=== PATIENT | male | born 1960 | race Caucasian/White ===

== ENCOUNTER 2017-07-06 13:08 | Emergency (ER) | payer BC, MEDICAID ==
[~2017-07-06] VITALS: Ht 190.5 cm; Wt 108.9 kg
[2017-07-06 13:22] VITALS: BP_SYST 133
--- NOTE | 2017-07-06 13:26 | NUR ---
Patient to ER bed 02 to gown for evaluation. Side rails up.
--- NOTE | 2017-07-06 13:26 | NUR ---
Pt brought by self,ambulatory,A&Ox4, pt presents to ER with cough , sore throat and congestion, skin pink and warm, cap refill <3, VSS, afebrile.
--- NOTE | 2017-07-06 13:28 | NUR ---
Dr Patino at bedside examining patient
--- NOTE | 2017-07-06 13:43 | NUR ---
Patient given written and verbal discharge instructions and verbalizes understanding. ER MD discussed with patient the results and treatment provided. Patient in stable condition. ID arm band removed. Rx of Albuterol,Motrin,Augmentin,Atenolol, Paxil given. Patient educated on pain management and to follow up with PMD. Pain Scale 2/10 tolerable for pt . Opportunity for questions provided and answered.
[2017-07-06 13:47] VITALS: BP_SYST 133
== END 2017-07-06 13:43 | disposition home or self-care (01) ==
LOC: SED 13:08
DX: J02.9 Acute pharyngitis, unspecified (principal); J40 Bronchitis, not specified as acute or chronic; Z88.8 Allergy status to other drugs, medicaments and biological substances
CPT/HCPCS: 36415; 86710; 99284

== ENCOUNTER 2017-07-29 07:19 | Inpatient (IN) | payer BC, MEDICAID ==
[~2017-07-29] VITALS: Ht 188 cm; Wt 99.8 kg
[2017-07-29 07:25] VITALS: BP_SYST 139
[2017-07-29] MEDS ORDERED: NACL 0.9% 1,000 ML IV ONE (07:44)
[2017-07-29] MEDS ORDERED: MORPHINE 2 MG/ML INJ. SYRINGE IVP ONE ×2 (07:45→10:00)
[2017-07-29] MEDS ORDERED: ONDANSETRON HCL 4 MG/2 ML VIAL IVP ONE (07:45)
[2017-07-29 08:15] LABS: BILIRUBIN,URINE 1+ (NEGATIVE); BLOOD, URINE NEGATIVE (NEGATIVE); CLARITY/URINE CLEAR (CLEAR); COLOR,URINE YELLOW (YELLOW); GLUCOSE,URINE NEGATIVE (NEGATIVE); KETONES,URINE TRACE (NEGATIVE); LEUKOCYTE ESTERASE ,URINE 1+ (NEGATIVE); NITRITE, URINE NEGATIVE (NEGATIVE); PROTEIN URINE TRACE (NEGATIVE); UROBILINOGEN,URINE 0.2 (0.2-1.0)
[2017-07-29 08:17] LABS: CALCIUM 9.3 mg/dL (8.4-11.0); CREATININE 1.2 mg/dL (0.55-1.30); POTASSIUM 3.8 mmol/L (3.5-5.1)
[2017-07-29 08:21] LABS: ALBUMIN 4.4 g/dL (3.4-4.8); TOTAL BILIRUBIN 1.2 mg/dL (0.0-1.0)
[2017-07-29 08:22] LABS: PROTHROMBIN TIME 10.4 SECS (9.5-12.5)
[2017-07-29 08:33] LABS: BASOPHILS % (AUTO) 0.5 % (0.0-2.0); EOSINOPHILS # (AUTO) 0.3 K/uL (0.0-0.4); EOSINOPHILS % (AUTO) 3.8 % (0.0-4.0); HEMATOCRIT 55.9 % (36-54); LYMPHOCYTES # (AUTO) 1.5 K/uL (1.0-5.5); LYMPHOCYTES % (AUTO) 17.2 % (20.5-51.5); MEAN CORPUSCULAR HEMOGLOBIN 31 pg (27-31); MEAN CORPUSCULAR HGB CONC 34 % (32-36); MEAN CORPUSCULAR VOLUME 90 fL (79.0-98.0); MONOCYTES # (AUTO) 0.7 K/uL (0.0-1.0); MONOCYTES % (AUTO) 8.8 % (1.7-9.3); NEUTROPHILS # (AUTO) 5.9 K/uL (1.8-7.7); NEUTROPHILS % (AUTO) 69.7 % (40.0-70.0); PLATELET COUNT (AUTO) 288 K/uL (130-430); RED BLOOD CELL COUNT(AUTO) 6.19 MIL/uL (4.2-6.2); RED CELL DISTRIBUTION WIDTH 12.4 % (9.0-15.0); WHITE BLOOD COUNT (AUTO) 8.4 K/uL (4.8-10.8)
[2017-07-29 08:36] LABS: BACTERIA,URINE MODERATE /HPF (None Seen); RBC,URINE 0-3 /HPF (0-3)
[2017-07-29 08:51] LABS: HEMOGLOBIN 19.1 g/dL (14.0-18.0)
[2017-07-29 10:10] VITALS: BP_SYST 132
[2017-07-29] MEDS ORDERED: FLU VACC QS 2017-18(36MOS+)/PF 0.5 ML/SYR SYRINGE I.M. PRN (10:30)
[2017-07-29] MEDS ORDERED: ACETAMINOPHEN 325 MG TABLET PO PRN (11:30)
[2017-07-29] MEDS ORDERED: MORPHINE 2 MG/ML INJ. SYRINGE ONE (12:24)
[2017-07-29 12:55] VITALS: BP_SYST 124
[2017-07-29] MEDS ORDERED: PANTOPRAZOLE SODIUM 40 MG TAB PO ONE (14:00)
[2017-07-29 16:23] VITALS: BP_SYST 148
[2017-07-29] MEDS ORDERED: LORazepam 1 MG TABLET PO PRN (16:45)
[2017-07-29] MEDS ORDERED: LEVOFLOXACIN 500 MG/D5W 100 ML IV SCH (17:00)
[2017-07-29] MEDS ORDERED: BISACODYL 5 MG TABLET.DR (DULCOLAX) PO ONE (17:00)
[2017-07-29] MEDS: ONDANSETRON HCL 4 MG/2 ML VIAL IVP PRN (17:12)
[2017-07-29] MEDS: MORPHINE 2 MG/ML INJ. SYRINGE IVP PRN ×2 (17:13→22:02)
[2017-07-29] MEDS ORDERED: GOLYTELY / COLYTE SOLUTION 4 LITERS PO ONE (18:00)
[2017-07-29] MEDS: traZODone HCL 50 MG TABLET (DESYREL) PO SCH ×2 (21:00→21:09)
[2017-07-30 01:05] VITALS: BP_SYST 115
[2017-07-30] MEDS: ONDANSETRON HCL 4 MG/2 ML VIAL IVP PRN (05:38)
[2017-07-30] MEDS: MORPHINE 2 MG/ML INJ. SYRINGE IVP PRN ×2 (05:39→12:56)
[2017-07-30 06:30] LABS: BASOPHILS % (AUTO) 0.5 % (0.0-2.0); EOSINOPHILS # (AUTO) 0.4 K/uL (0.0-0.4); HEMATOCRIT 53.6 % (36-54); HEMOGLOBIN 18.1 g/dL (14.0-18.0); LYMPHOCYTES % (AUTO) 20.9 % (20.5-51.5); MEAN CORPUSCULAR HEMOGLOBIN 31 pg (27-31); MEAN CORPUSCULAR HGB CONC 34 % (32-36); MEAN CORPUSCULAR VOLUME 92 fL (79.0-98.0); MONOCYTES # (AUTO) 0.7 K/uL (0.0-1.0); MONOCYTES % (AUTO) 7.1 % (1.7-9.3); NEUTROPHILS # (AUTO) 6.3 K/uL (1.8-7.7); NEUTROPHILS % (AUTO) 67.5 % (40.0-70.0); PLATELET COUNT (AUTO) 280 K/uL (130-430); RED BLOOD CELL COUNT(AUTO) 5.86 MIL/uL (4.2-6.2); RED CELL DISTRIBUTION WIDTH 12.6 % (9.0-15.0); WHITE BLOOD COUNT (AUTO) 9.4 K/uL (4.8-10.8)
[2017-07-30] MEDS ORDERED: MEPERIDINE HCL/PF 100 MG/ML AMP ONE (07:16)
[2017-07-30] MEDS ORDERED: SIMETHICONE 40 MG/0.6 ML ML ONE (07:16)
[2017-07-30] MEDS ORDERED: MIDAZOLAM HCL 5 MG/5 ML VIAL ONE (07:17)
[2017-07-30 07:24] LABS: INR 1.1 (0.80-1.20)
[2017-07-30 07:25] LABS: CALCIUM 8.7 mg/dL (8.4-11.0); CREATININE 1.05 mg/dL (0.55-1.30); POTASSIUM 3.6 mmol/L (3.5-5.1); THYROID STIMULATING HORMONE 10.64 uIu/mL (0.34-4.82)
[2017-07-30] MEDS ORDERED: PARoxetine HCL 20 MG TABLET PO SCH (09:00)
[2017-07-30] MEDS ORDERED: PANTOPRAZOLE SODIUM 40 MG TAB PO SCH (09:00)
[2017-07-30] MEDS ORDERED: ATENOLOL 25 MG TABLET(TENORMIN) PO SCH (09:00)
[2017-07-30 09:10] VITALS: BP_SYST 120
[2017-07-30] MEDS ORDERED: LEVOTHYROXINE SODIUM 0.05 MG TABLET PO ONE (09:45)
[2017-07-30] MEDS ORDERED: CARISOPRODOL 350 MG TABLET PO ONE (11:15)
[2017-07-30 12:23] VITALS: BP_SYST 99
[2017-07-30 12:24] VITALS: BP_SYST 99
[2017-07-30] MEDS ORDERED: ATEN-41 PO (12:36)
[2017-07-30] MEDS ORDERED: LEVO25TA7 PO (12:43)
[2017-07-30] MEDS ORDERED: BISACODYL 5 MG TABLET.DR (DULCOLAX) PO ONE (17:00)
[2017-07-31] MEDS ORDERED: LEVOTHYROXINE SODIUM 0.05 MG TABLET PO SCH (07:00)
== END 2017-07-30 13:40 | disposition home or self-care (01) | DRG 690 ==
LOC: SED 07:19 → SMU 09:47
PROVIDERS: ADMIT Internal Medicine; ATTEND Internal Medicine
PROC: 0DJD8ZZ Inspection of Lower Intestinal Tract, Via Natural or Artificial Opening Endoscopic (ICD-10-PCS; principal; 2017-07-30 08:00)
DX: N39.0 Urinary tract infection, site not specified (principal); D75.1 Secondary polycythemia; I48.91 Unspecified atrial fibrillation; K64.8 Other hemorrhoids; F32.9 Major depressive disorder, single episode, unspecified; E78.5 Hyperlipidemia, unspecified; Z80.0 Family history of malignant neoplasm of digestive organs; Z88.8 Allergy status to other drugs, medicaments and biological substances
CPT/HCPCS: 36415; 45378; 80048; 80053; 81000-TC; 82150-TC; 83690-TC; 83735-TC; 84443-TC; 85025; 85610-TC; 85730-TC; 87086; 93005; 96361; 96374; 96375; 99285; J1956; J2175; J2250; J2270; J2405; J7030; Q2037

== ENCOUNTER 2020-10-19 17:19 | Emergency (ER) | payer BC, MEDICAID ==
[~2020-10-19] VITALS: Ht 188 cm; Wt 102.1 kg
[2020-10-19 17:19] VITALS: BP_SYST 104
[~2020-10-19 17:19] MED LIST: ATEN-41 PO; LEVO25TA7 PO
[2020-10-19 18:40] LABS: BASOPHILS # (AUTO) 0.1 K/uL (0.0-0.2); EOSINOPHILS # (AUTO) 0.3 K/uL (0.0-0.4); LYMPHOCYTES # (AUTO) 1.9 K/uL (1.0-5.5); RED BLOOD CELL COUNT(AUTO) 5.88 MIL/uL (4.2-6.2); WHITE BLOOD COUNT (AUTO) 10.2 K/uL (4.8-10.8)
[2020-10-19 18:42] LABS: BASOPHILS % (AUTO) 1.1 % (0.0-2.0); EOSINOPHILS % (AUTO) 3.1 % (0.0-4.0); HEMATOCRIT 57.4 % (36-54); LYMPHOCYTES % (AUTO) 18.4 % (20.5-51.5); MEAN CORPUSCULAR HEMOGLOBIN 34 pg (27-31); MEAN CORPUSCULAR HGB CONC 35 % (32-36); MEAN CORPUSCULAR VOLUME 98 fL (79.0-98.0); MONOCYTES # (AUTO) 1.1 K/uL (0.0-1.0); MONOCYTES % (AUTO) 10.4 % (1.7-9.3); NEUTROPHILS # (AUTO) 6.9 K/uL (1.8-7.7); PLATELET COUNT (AUTO) 217 K/uL (130-430); RED CELL DISTRIBUTION WIDTH 13.7 % (9.0-15.0)
[2020-10-19 18:55] LABS: PROTHROMBIN TIME 10.1 SECS (9.5-12.5)
[2020-10-19 18:59] LABS: SODIUM SERUM 141 mmol/L (136-145)
[2020-10-19 19:00] LABS: ANION GAP 6 (5-15); CALCIUM 8.8 mg/dL (8.4-11.0); CHLORIDE 104 mmol/L (98-107); CREATININE 1.31 mg/dL (0.55-1.30); GFR AFRICAN AMERICAN 72 mL/min (>90); GLUCOSE 89 mg/dL (70-99); POTASSIUM 4.4 mmol/L (3.5-5.1); UREA NITROGEN, BLOOD 8 mg/dL (8-21)
[2020-10-19 19:07] LABS: ALANINE AMINOTRANSFERASE 35 U/L (12-78); ALBUMIN 3.6 g/dL (3.4-4.8); ASPARTATE AMINOTRANSFERASE 20 U/L (10-37); LIPASE 80 U/L (73-393); TOTAL BILIRUBIN 1.4 mg/dL (0.0-1.0)
[2020-10-19 19:26] LABS: BILIRUBIN,URINE NEGATIVE (NEGATIVE); BLOOD, URINE NEGATIVE (NEGATIVE); CLARITY/URINE CLEAR (CLEAR); COLOR,URINE YELLOW (YELLOW); GLUCOSE,URINE NEGATIVE (NEGATIVE); KETONES,URINE NEGATIVE (NEGATIVE); LEUKOCYTE ESTERASE ,URINE NEGATIVE (NEGATIVE); NITRITE, URINE NEGATIVE (NEGATIVE); PROTEIN URINE NEGATIVE (NEGATIVE)
[2020-10-19] MEDS ORDERED: CIPR500T5 PO (19:40)
[2020-10-19] MEDS ORDERED: ACET325C6 PO (19:40)
[2020-10-19] MEDS ORDERED: METR500T PO (19:40)
[2020-10-19] MEDS ORDERED: KETOROLAC TROMETHAMINE 30 MG VIAL IM ONE (19:45)
[2020-10-19] MEDS ORDERED: ONDANSETRON 4 MG ODT TAB PO ONE (19:45)
[2020-10-19] MEDS ORDERED: MORPHINE 2 MG/ML INJ. SYRINGE IM ONE (19:45)
[2020-10-19 20:14] VITALS: BP_SYST 104
[2020-10-19] MEDS ORDERED: TRAM50TA PO (20:15)
== END 2020-10-19 20:16 | disposition home or self-care (01) ==
LOC: SED 17:19
DX: R10.32 Left lower quadrant pain (principal); R19.7 Diarrhea, unspecified; Z88.8 Allergy status to other drugs, medicaments and biological substances; Z79.899 Other long term (current) drug therapy
CPT/HCPCS: 36415; 74176; 76376; 80053; 81003; 83690; 84484; 85025; 85610; 85730; 93005; 96372; 99285; J1885; J2270; Q0162

== ENCOUNTER 2021-06-04 19:29 | Emergency (ER) | payer BC, SELFPAY ==
[~2021-06-04] VITALS: Ht 190.5 cm; Wt 99.8 kg
[~2021-06-04 19:29] MED LIST changes: +ACET325C6 PO; +CIPR500T5 PO; +METR500T PO
[2021-06-04 21:19] VITALS: BP_SYST 121
--- NOTE | 2021-06-04 22:15 | NUR ---
Patient came to ER. C/O right shoulder pain x 3 months. Patient reported, had right shoulder pain for 3 months and needs to check for COVID-19 ( Patient was vaccinated in January -Contacted with family/friend who had COVID-19 recently), Patient denies COVID-19 symptoms. )
--- NOTE | 2021-06-04 22:15 | NUR ---
ER Dr. Linares at Triage examining patient.
--- NOTE | 2021-06-04 23:33 | NUR ---
COVID-19 swabs collected and sent to lab.
--- NOTE | 2021-06-05 00:32 | NUR ---
Dr. Linares at Triage to explain results and treatment plans.
[2021-06-05 00:41] VITALS: BP_SYST 121
--- NOTE | 2021-06-05 00:41 | NUR ---
Patient given written and verbal discharge instructions and verbalizes understanding. ER MD discussed with patient the results and treatment provided. Patient in stable condition. ID arm band removed. No Rx given. Patient educated on pain management and to follow up with PMD. Pain Scale 1/10. Opportunity for questions provided and answered.
== END 2021-06-05 00:41 | disposition home or self-care (01) ==
LOC: SED 19:29
DX: M75.21 Bicipital tendinitis, right shoulder (principal); F32.9 Major depressive disorder, single episode, unspecified; F41.9 Anxiety disorder, unspecified; Z20.822 Contact with and (suspected) exposure to COVID-19; Z79.899 Other long term (current) drug therapy
CPT/HCPCS: 36415; 73030; 99284

== ENCOUNTER 2021-07-29 10:12 | Emergency (ER) | payer BC, OTHER, SELFPAY ==
[~2021-07-29] VITALS: Ht 188 cm; Wt 94.3 kg
[2021-07-29 10:12] VITALS: BP_SYST 104
[2021-07-29] MEDS ORDERED: HYDROcodone/ACETAMIN 5-325 MG TAB (NORCO/ VICODIN) PO ONE ×2 (10:45→12:00)
[2021-07-29] MEDS ORDERED: HYDR-3917 PO (11:39)
[2021-07-29] MEDS ORDERED: NAPR-1172 PO (11:39)
[2021-07-29 13:54] VITALS: BP_SYST 135
== END 2021-07-29 13:54 | disposition home or self-care, planned readmission (81) ==
LOC: SED 10:12
DX: S62.316A Displaced fracture of base of fifth metacarpal bone, right hand, initial encounter for closed fracture (principal); S60.221A Contusion of right hand, initial encounter; F32.9 Major depressive disorder, single episode, unspecified; F41.9 Anxiety disorder, unspecified; Z88.8 Allergy status to other drugs, medicaments and biological substances; Z79.899 Other long term (current) drug therapy; W22.8XXA Striking against or struck by other objects, initial encounter; Y93.89 Activity, other specified; Y92.89 Other specified places as the place of occurrence of the external cause; Y99.8 Other external cause status
CPT/HCPCS: 99284

== ENCOUNTER 2021-08-10 11:51 | Emergency (ER) | payer OTHER ==
[~2021-08-10] VITALS: Ht 190.5 cm; Wt 93.0 kg
[~2021-08-10 11:51] MED LIST changes: +HYDR-3917 PO; +NAPR-1172 PO
[2021-08-10 12:15] VITALS: BP_SYST 134
[2021-08-10 13:35] LABS: CALCIUM 7.8 mg/dL (8.4-11.0); CREATININE 0.94 mg/dL (0.55-1.30)
[2021-08-10 13:41] LABS: ALBUMIN 3.7 g/dL (3.4-4.8); TOTAL BILIRUBIN 0.7 mg/dL (0.0-1.0)
[2021-08-10 13:54] LABS: HEMOGLOBIN 15.6 g/dL (14.0-18.0); RED BLOOD CELL COUNT(AUTO) 4.89 MIL/uL (4.2-6.2); WHITE BLOOD COUNT (AUTO) 7.9 K/uL (4.8-10.8)
[2021-08-10 13:55] LABS: BASOPHILS # (AUTO) 0.1 K/uL (0.0-0.2); BASOPHILS % (AUTO) 1.3 % (0.0-2.0); EOSINOPHILS # (AUTO) 0.4 K/uL (0.0-0.4); EOSINOPHILS % (AUTO) 5.3 % (0.0-4.0); LYMPHOCYTES # (AUTO) 1.5 K/uL (1.0-5.5); LYMPHOCYTES % (AUTO) 18.7 % (20.5-51.5); MEAN CORPUSCULAR HEMOGLOBIN 32 pg (27-31); MEAN CORPUSCULAR HGB CONC 34 % (32-36); MEAN CORPUSCULAR VOLUME 94 fL (79.0-98.0); MONOCYTES # (AUTO) 0.5 K/uL (0.0-1.0); NEUTROPHILS # (AUTO) 5.3 K/uL (1.8-7.7); NEUTROPHILS % (AUTO) 67.7 % (40.0-70.0); PLATELET COUNT (AUTO) 276 K/uL (130-430); RED CELL DISTRIBUTION WIDTH 12.9 % (9.0-15.0)
[2021-08-10] MEDS ORDERED: HYDROcodone/ACETAMIN 10-325 MG TAB PO ONE (14:45)
[2021-08-10] MEDS ORDERED: HYDR-3917 PO (15:58)
[2021-08-10 16:22] VITALS: BP_SYST 134
== END 2021-08-10 16:22 | disposition home or self-care (01) ==
LOC: SED 11:51
DX: S60.221A Contusion of right hand, initial encounter (principal); M79.605 Pain in left leg; I48.91 Unspecified atrial fibrillation; F32.A Depression, unspecified; Z79.899 Other long term (current) drug therapy; Z79.01 Long term (current) use of anticoagulants; X58.XXXA Exposure to other specified factors, initial encounter; Y93.89 Activity, other specified; Y92.89 Other specified places as the place of occurrence of the external cause; Y99.8 Other external cause status
CPT/HCPCS: 36415; 71045; 73030; 80053; 83605; 85025; 85379; 86140; 93005; 93971; 99285

== ENCOUNTER 2021-08-23 20:26 | Emergency (ER) | payer OTHER ==
[~2021-08-23] VITALS: Ht 190.5 cm; Wt 93.0 kg
[2021-08-23 20:51] VITALS: BP_SYST 111
[2021-08-23] MEDS ORDERED: HYDROcodone/ACETAMIN 10-325 MG TAB PO ONE (22:30)
[2021-08-23] MEDS ORDERED: TRAM50TA PO (23:34)
[2021-08-24 00:15] VITALS: BP_SYST 112
== END 2021-08-24 00:20 | disposition home or self-care (01) ==
LOC: SED 20:26
DX: S60.221A Contusion of right hand, initial encounter (principal); S80.02XA Contusion of left knee, initial encounter; I48.91 Unspecified atrial fibrillation; X58.XXXA Exposure to other specified factors, initial encounter; Y93.89 Activity, other specified; Y92.89 Other specified places as the place of occurrence of the external cause; Y99.8 Other external cause status
CPT/HCPCS: 73564; 99284

== ENCOUNTER 2021-12-02 17:10 | Emergency (ER) | payer OTHER ==
[~2021-12-02] VITALS: Ht 188 cm; Wt 90.7 kg
[~2021-12-02 17:10] MED LIST changes: +TRAM50TA PO
[2021-12-02 17:21] VITALS: BP_SYST 91
--- NOTE | 2021-12-02 19:50 | NUR ---
PT TO H2 FOR PROVIDER TO SEE
[2021-12-02] MEDS ORDERED: KETOROLAC TROMETHAMINE 60 MG/2 ML VIAL IM ONE (20:00)
--- NOTE | 2021-12-02 20:00 | NUR ---
ATTEMPTED TO MOVE PT TO H1 UNABLE TO LOCATE PT. CALLED PT OUTSIDE. NO ANSWER.
[2021-12-02] MEDS ORDERED: IBUP-1969 PO (20:06)
--- NOTE | 2021-12-02 20:15 | NUR ---
CALLED PT AT THIS TIME TO BE SEEN. NO ANSWER. PROVIDER AWARE. Patient left without being seen.
[2021-12-02 21:34] VITALS: BP_SYST 108
[2021-12-03] MEDS ORDERED: NAPR-1172 PO (02:34)
== END 2021-12-02 21:34 | disposition home or self-care (01) ==
LOC: SED 17:10
DX: M25.562 Pain in left knee (principal); M79.672 Pain in left foot; Z88.2 Allergy status to sulfonamides
CPT/HCPCS: 71045; 73564; 73630; 99281; J1885

== ENCOUNTER 2021-12-02 23:51 | Emergency (ER) | payer OTHER ==
[~2021-12-02] VITALS: Ht 188 cm; Wt 91.6 kg
[~2021-12-02 23:51] MED LIST changes: +IBUP-1969 PO
[2021-12-03 00:48] VITALS: BP_SYST 107
--- NOTE | 2021-12-03 00:57 | NUR ---
PT AMBULATES TO WITH STEADY GAIT.
--- NOTE | 2021-12-03 01:51 | NUR ---
PROVIDER WITH PT TO EXAMINE. PT TOLERATES WELL. PT AMBULATES TO RESTROOM FOR URINE SPECIMEN
[2021-12-03] MEDS ORDERED: NAPR-1172 PO (02:34)
[2021-12-03 02:50] VITALS: BP_SYST 110
--- NOTE | 2021-12-03 02:50 | NUR ---
Patient given written and verbal discharge instructions and verbalizes understanding. ER MD discussed with patient the results and treatment provided. Patient in stable condition. Rx of Naproxen sent to pharmacy of choice by ER MD. Patient educated on pain management and to follow up with PMD. Opportunity for questions provided and answered.
== END 2021-12-03 02:50 | disposition home or self-care (01) ==
LOC: SED 23:51
DX: S83.92XA Sprain of unspecified site of left knee, initial encounter (principal); Z88.6 Allergy status to analgesic agent; Z79.899 Other long term (current) drug therapy; W18.30XA Fall on same level, unspecified, initial encounter; Y93.89 Activity, other specified; Y92.89 Other specified places as the place of occurrence of the external cause; Y99.8 Other external cause status
CPT/HCPCS: 81002; 99282